=== PATIENT | male | born 2000 | race Native Hawaiian/Other Pacific Islander ===

== ENCOUNTER 2018-09-21 20:55 | Emergency (ER) | payer OTHER ==
--- NOTE | 2018-09-21 22:05 | ED PDOC ---
HPI: Male Pain Time Seen by Provider: 09/21/18 21:12 Chief Complaint (Nursing): Male Genitourinary History Per: Patient Additional Complaint(s): Pt. states this morning he woke up with a "partial erection" which has persisted. This afternoon he noticed greenish/yellow discharge from the penis. States he has not taken any meds to cause an erection. Also states he has never had sexual intercourse. His last ejaculation was 1 week ago. Denies fever, abdominal pain, illicit drug use, trauma, testicular pain, scrotal pain, dysuria, hematuria, frequency, back pain. Past Medical History Reviewed: Historical Data, Nursing Documentation, Vital Signs Vital Signs: Last Vital Signs Temp 98.6 F 09/21/18 21:00 Pulse 105 H 09/21/18 21:00 Resp 20 09/21/18 21:00 BP 133/84 09/21/18 21:00 Pulse Ox 99 09/21/18 21:00 - Family History Family History: States: No Known Family Hx - Social History Drugs: Denies - Home Medications Home Medications: Ambulatory Orders Medication Instructions Recorded Ciprofloxacin [Cipro] 500 mg PO BID #14 tab 09/21/18 Nystatin [Mycostatin Oint] 1 applic TOP BID #1 tube 09/21/18 - Allergies Allergies/Adverse Reactions: Allergies Allergy/AdvReac Type Severity Reaction Status Date / Time No Known Allergies Allergy Verified 09/21/18 20:59 Review of Systems ROS Statement: Except As Marked, All Systems Reviewed And Found Negative Genitourinary Male: Positive for: Penile Discharge Physical Exam - Physical Exam Appears: Positive for: Well, Non-toxic, No Acute Distress Skin: Positive for: Normal Color, Warm. Negative for: Rash Eye Exam: Positive for: Normal appearance Gastrointestinal/Abdominal: Positive for: Soft. Negative for: Tenderness Male Genital Exam: Positive for: urethral discharge (greenish/yellow), other (uncircumcised male; penis is easily bent and is flaccid). Negative for: inguinal tenderness, lesions, scrotum tenderness (R), scrotum tenderness (L), testicular tenderness (R), testicular tenderness (L) Neurologic/Psych: Positive for: Alert, Oriented (x3). Negative for: Aphasia, Facial Droop - ECG O2 Sat by Pulse Oximetry: 99 - Progress ED Course And Treament: Case d/w Dr. Quinteros who recommends contacting Dr. Brush. Case d/w Dr. Brush who recommends icing area and also treating for possible STD. Discussed likelihood of possible ischemia but unlikely as penis is easily bent. Urine, GC/chlamydia ordered. Pt. given ice pack. Informed that Rocephin/Zithromax is recommended to prevent progression of urethritis but refused as he prefers to wait for GC/Chlamydia results. Advised to return to ED immediately if fever develops or symptoms worsen. [phone] (pt's preferred phone number) Disposition - Clinical Impression Clinical Impression: Urinary tract infection, Urethritis - Patient ED Disposition Is Patient to be Admitted: No - Disposition Referrals: Jose Brush MD [Medical Doctor] - [facility] [Outside] Disposition: Routine/Home Disposition Time: 23:50 Condition: STABLE Additional Instructions: RETURN TO ED IMMEDIATELY IF SYMPTOMS WORSEN JUNIOR CHUA, thank you for letting us take care of you today. Your provider was Aneesh Quinteros MD and you were treated for HEAD PAIN. The emergency medical care you received today was directed at your acute symptoms. If you were prescribed any medication, please fill it and take as directed. It may take several days for your symptoms to resolve. Return to the Emergency Department if your symptoms worsen, do not improve, or if you have any other problems. Please contact your doctor or call one of the physicians/clinics you have been referred to that are listed on the Patient Visit Information form that is included in your discharge packet. Bring any paperwork you were given at discharge with you along with any medications you are taking to your follow up visit. Our treatment cannot replace ongoing medical care by a primary care provider outside of the emergency department. Thank you for allowing the [facility] team to be part of your care today. If you had an X-Ray or CT scan: A Radiologist will review the ED reading if any change in treatment is needed we will contact you. If you had a blood, urine, or wound culture: It will take several days for the results, if any change in treatment is needed we will contact you. If you had an STI test: It will take 48 hours for the results. Please call after 1 week if you have not heard back. Prescriptions: Ciprofloxacin [Cipro] 500 mg PO BID #14 tab Nystatin [Mycostatin Oint] 1 applic TOP BID #1 tube Instructions: Urinary Tract Infection, Adult (DC), Urethritis (DC) Forms: Liiiike (Congolese) Print Language: KITTITIAN
[2018-09-21 22:39] LABS: SQUAMOUS EPITHIAL < 1 /hpf (0-5); URINE BACTERIA RARE (<OCC); URINE BILIRUBIN NEGATIVE (NEGATIVE); URINE BLOOD SMALL (NEGATIVE); URINE CLARITY CLOUDY (Clear); URINE COLOR YELLOW (YELLOW); URINE GLUCOSE (UA) NEG (Normal); URINE LEUKOCYTE ESTERASE LARGE Leu/uL (Negative); URINE PROTEIN 30 mg/dL (NEGATIVE); URINE UROBILINOGEN 0.2-1.0 mg/dL (0.2-1.0)
[2018-09-22 00:24] VITALS: BP 131/73; PULSE 78; RESP 18; TEMP 98.2; O2SAT 100
== END 2018-09-22 00:25 | disposition home or self-care (01) ==
LOC: H.ER 20:55
DX: N39.0 Urinary tract infection, site not specified (principal); N34.2 Other urethritis